=== PATIENT | male | born 2000 | race Two or more races ===

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

== ENCOUNTER 2018-09-16 21:28 | Emergency (ER) | payer SELFPAY ==
[~2018-09-16] VITALS: Ht 185.4 cm; Wt 108.9 kg
[~2018-09-16 21:28] MED LIST: DIPH25CA58 PO; FAMO-63 PO; PRED50TA PO
[2018-09-16 21:35] VITALS: BP 134/66
[2018-09-16 22:01] LABS: BILIRUBIN,URINE NEGATIVE (NEG); CLARITY,URINE CLOUDY; COLOR,URINE YELLOW; NITRITE,URINE NEGATIVE (NEG); PROTEIN,URINE NEGATIVE (NEG-TRACE)
[2018-09-16 22:10] LABS: SQUAMOUS EPITHELIAL CELL,UR FEW /LPF
[2018-09-16 22:11] LABS: BACTERIA,URINE 0 /HPF (0-FEW); RBC,URINE 0 /HPF (0-2); WBC,URINE TNTC /HPF (0-4)
[2018-09-16] MEDS ORDERED: AZITHROMYCIN 250 MG TABLET. PO ONE (23:00)
[2018-09-16] MEDS ORDERED: cefTRIAXone IM 250 MG VIAL IM ONE (23:00)
[2018-09-16] MEDS ORDERED: LIDOCAINE 1% PF 30 ML VIAL. INJ ONE (23:00)
[2018-09-16] MEDS ORDERED: CEPH-264 PO (23:09)
--- NOTE | 2018-09-16 23:11 | PHYS DOC ---
Past Medical History Past Medical History: No Pertinent History Past Surgical History: No Surgical History Smoking: Cigarettes, Less than 1pk/day Alcohol Use: None Drug Use: Other Adult General Chief Complaint Chief Complaint: FINGER INJURY HPI HPI Patient is a 18 year old male who presents with swelling of his left third digit on his hand. Also complains of penile discharge this been ongoing for 1 week describes the discharge is white in nature. Rates his pain is a 9 out of 10 and throbbing. Has not tried any interventions before arrival. Review of Systems Review of Systems Constitutional: Denies fever or chills [] Eyes: Denies change in visual acuity, redness, or eye pain [] HENT: Denies nasal congestion or sore throat [] Respiratory: Denies cough or shortness of breath [] Cardiovascular: No additional information not addressed in HPI [] GI: Denies abdominal pain, nausea, vomiting, bloody stools or diarrhea [] : Denies dysuria or hematuria but reports white penile discharge. Musculoskeletal: Denies back pain or joint pain [] Integument: Denies rash or skin lesions with exception of swelling to L 3rd digit around finger nail. Neurologic: Denies headache, focal weakness or sensory changes [] Endocrine: Denies polyuria or polydipsia [] Complete systems were reviewed and found to be within normal limits, except as documented in this note. Current Medications Current Medications Current Medications Medications (Trade) Dose Ordered Sig/Jennifer Start Time Stop Time Status Last Admin Dose Admin Azithromycin (Zithromax) 1,000 mg 1X ONCE 09/16/18 23:00 09/16/18 23:01 DC 09/16/18 23:00 1,000 MG Ceftriaxone Sodium (Rocephin Im) 250 mg 1X ONCE 09/16/18 23:00 09/16/18 23:01 DC 09/16/18 23:00 250 MG Lidocaine HCl (Xylocaine 1% Pf 30ml Vial) 30 ml 1X ONCE 09/16/18 23:00 09/16/18 23:01 DC Allergies Allergies Allergies Coded Allergies Type Severity Reaction Last Updated Verified No Known Drug Allergies 07/26/16 No Physical Exam Physical Exam Constitutional: Well developed, well nourished, no acute distress, non-toxic appearance. [] HENT: Normocephalic, atraumatic, bilateral external ears normal, oropharynx moist, no oral exudates, nose normal. [] Eyes: PERRLA, EOMI, conjunctiva normal, no discharge. [] Neck: Normal range of motion, no tenderness, supple, no stridor. [] Cardiovascular:Heart rate regular rhythm, no murmur [] Lungs & Thorax: Bilateral breath sounds clear to auscultation [] Abdomen: Bowel sounds normal, soft, no tenderness, no masses, no pulsatile masses. [] Skin: Warm, dry, no erythema, no rash. with exception of around L 3rd finger nail. Has swelling and erythema. Back: No tenderness, no CVA tenderness. [] Extremities: No tenderness, no cyanosis, no clubbing, ROM intact, no edema. [] Neurologic: Alert and oriented X 3, normal motor function, normal sensory function, no focal deficits noted. [] Psychologic: Affect normal, judgement normal, mood normal. [] Current Patient Data Vital Signs Vital Signs Date Time Temp Pulse Resp B/P (MAP) Pulse Ox O2 Delivery O2 Flow Rate FiO2 09/16/18 21:35 99.1 82 17 134/66 (88) 97 Room Air 99.1 Lab Values Laboratory Tests Test 09/16/18 21:35 Urine Collection Type Unknown Urine Color Yellow Urine Clarity Cloudy Urine pH 7.0 Urine Specific [place] 1.025 Urine Protein Negative mg/dL (NEG-TRACE) Urine Glucose (UA) Negative mg/dL (NEG) Urine Ketones (Stick) Negative mg/dL (NEG) Urine Blood Negative (NEG) Urine Nitrite Negative (NEG) Urine Bilirubin Negative (NEG) Urine Urobilinogen Dipstick 1.0 mg/dL (0.2 mg/dL) Urine Leukocyte Esterase Large (NEG) Urine RBC 0 /HPF (0-2) Urine WBC Tntc /HPF (0-4) Urine Squamous Epithelial Cells Few /LPF Urine Bacteria 0 /HPF (0-FEW) Urine Mucus Mod /LPF EKG EKG [] Radiology/Procedures Radiology/Procedures Performed a digit block on third left digit using 1% lidocaine. Cleared with iodine before block. Used 3 mL of lidocaine. After patient was numbed, took an 11 blade scalpel and drained abscess. No complications. Course & Med Decision Making Course & Med Decision Making Pertinent Labs and Imaging studies reviewed. (See chart for details) Will get urine and treat for STD. Will also perform digit block and drain paronychia. Patient is agreeable. Dragon Disclaimer Dragon Disclaimer This electronic medical record was generated, in whole or in part, using a voice recognition dictation system. Departure Departure Impression: Primary Impression: Paronychia of finger of left hand Additional Impression: Screen for STD (sexually transmitted disease) Disposition: HOME, SELF-CARE Condition: STABLE Referrals: NO PCP (PCP) Patient Instructions: Paronychia, Sexually Transmitted Disease Additional Instructions: Please follow up with primary care doctor as needed. Return to ER as needed. Please start protecting yourself while having sex with condoms. Consider following up with health department for more workup. Please keep finger clean and take all of antibiotics. Scripts Cephalexin (KEFLEX) 500 Mg Capsule 500 MG PO QID for 5 Days, #20 CAP Prov: LAUREN CANCHOLA APRN 09/16/18 Problem Qualifiers LAUREN CANCHOLA APRN Sep 16, 2018 23:11
[2018-09-16] MEDS ORDERED: CEPHALEXIN 250 MG CAPSULE. PO ONE (23:30)
== END 2018-09-16 23:52 | disposition home or self-care (01) ==
LOC: ER 21:28
DX: L03.012 Cellulitis of left finger (principal); Z11.3 Encounter for screening for infections with a predominantly sexual mode of transmission; F17.210 Nicotine dependence, cigarettes, uncomplicated
CPT/HCPCS: 10060; 81001; 87086; 87491; 87591; 96372; 99284; J0696; Q0144

== ENCOUNTER 2020-03-16 07:57 | Emergency (ER) | payer SELFPAY ==
[~2020-03-16] VITALS: Ht 185.4 cm; Wt 118.0 kg
[~2020-03-16 07:57] MED LIST changes: +CEPH-264 PO
[2020-03-16 08:34] LABS: BILIRUBIN,URINE NEGATIVE (NEG); CLARITY,URINE CLEAR; COLOR,URINE YELLOW; NITRITE,URINE NEGATIVE (NEG); PH,URINE 7.5 (<5.0-8.0); PROTEIN,URINE NEGATIVE (NEG-TRACE); UROBILINOGEN,URINE 0.2 mg/dL (0.2 mg/dL)
[2020-03-16 09:07] LABS: BACTERIA,URINE 0 /HPF (0-FEW); RBC,URINE 0 /HPF (0-2); WBC,URINE >40 /HPF (0-4)
--- NOTE | 2020-03-16 09:28 | ED.ADGEN ---
Past Medical History Past Medical History: No Pertinent History Past Surgical History: No Surgical History Smoking Status: Current Some Day Smoker Alcohol Use: Occasionally Drug Use: Other General Adult EDM: Chief Complaint: SEXUALLY TRANSMITTED DISEASE HPI: HPI: Patient is a 20-year-old male who presents to the emergency room complaining of penile discharge and dysuria. He states that dysuria started 4 days ago and has progressively gotten worse. He started having discharge 2 days ago. He has had this previously. He states his girlfriend is also getting tested and treated today. He denies any fever. He does not have any rash. Review of Systems: Review of Systems: Complete ROS is negative unless otherwise documented in HPI Current Medications: Current Medications Medications (Trade) Dose Ordered Sig/Jennifer Start Time Stop Time Status Last Admin Dose Admin Azithromycin (Zithromax) 1,000 mg 1X ONCE 03/16/20 09:45 03/16/20 09:46 03/16/20 09:31 1,000 MG Ceftriaxone Sodium (Rocephin Im) 250 mg 1X ONCE 03/16/20 09:45 03/16/20 09:46 03/16/20 09:32 250 MG Metronidazole (Flagyl) 2,000 mg 1X ONCE 03/16/20 09:45 03/16/20 09:46 03/16/20 09:31 2,000 MG Ondansetron HCl (Zofran Odt) 4 mg 1X ONCE 03/16/20 09:45 03/16/20 09:46 03/16/20 09:31 4 MG Allergies: Allergies: Allergies Coded Allergies Type Severity Reaction Last Updated Verified No Known Drug Allergies 07/26/16 No Physical Exam: PE: General: Awake, alert, NAD. Well Nourished, well hydrated. Cooperative HEENT: Atraumatic, EOMI, PERRL, airway patent, moist oral mucosa Neck: Supple, trachea midline Respiratory: CTA bilaterally, normal effort, no wheezing/crackles CV: RRR, no murmur, cap refill <2 GI: Soft, nondistended, nontender, no masses MSK: No obvious deformities Skin: Warm, dry, intact Neuro: A&O x3, speech NL, sensory and motor grossly intact, no focal deficits Psych: Normal affect, normal mood, not suicidal or homicidal Current Patient Data: Labs: Laboratory Tests Test 03/16/20 08:10 Urine Collection Type Unknown Urine Color Yellow Urine Clarity Clear Urine pH 7.5 (<5.0-8.0) Urine Specific [place] 1.020 (1.000-1.030) Urine Protein Negative mg/dL (NEG-TRACE) Urine Glucose (UA) Negative mg/dL (NEG) Urine Ketones (Stick) Negative mg/dL (NEG) Urine Blood Negative (NEG) Urine Nitrite Negative (NEG) Urine Bilirubin Negative (NEG) Urine Urobilinogen Dipstick 0.2 mg/dL (0.2 mg/dL) Urine Leukocyte Esterase Large (NEG) Urine RBC 0 /HPF (0-2) Urine WBC >40 /HPF (0-4) Urine Squamous Epithelial Cells Occ /LPF Urine Bacteria 0 /HPF (0-FEW) Urine Mucus Mod /LPF Vital Signs: Vital Signs Date Time Temp Pulse Resp B/P (MAP) Pulse Ox O2 Delivery O2 Flow Rate FiO2 03/16/20 08:10 97.5 89 16 175/99 (124) 99 Room Air 97.5 EKG: EKG: [] Heart Score: Risk Factors: Risk Factors: DM, Current or recent (<one month) smoker, HTN, HLP, family histo ry of CAD, obesity. Risk Scores: Score 0 - 3: 2.5% MACE over next 6 weeks - Discharge Home Score 4 - 6: 20.3% MACE over next 6 weeks - Admit for Clinical Observation Score 7 - 10: 72.7% MACE over next 6 weeks - Early Invasive Strategies Radiology/Procedures: Radiology/Procedures: [] Course & Med Decision Making: Course & Med Decision Making Pertinent Labs and Imaging studies reviewed. (See chart for details) Patient is a 20 year-old male who presents to the Emergency Room complaining of penile discharge and dysuria. Patient's presentation is concerning for urethritis due to possible sexually transmitted disease. Patient does not have any lesions or swelling at this time. UA and gonorrhea chlamydia urine PCR will be ordered. Patient will be treated empirically with Flagyl, Rocephin, Azithromycin, and zofran. I have discussed with the patient that they will need to follow up with the health department for full testing, that their partners should be tested and treated, and that they should not have sexual intercourse for at least 7 days after treatment. Patient's test results and vitals while in the ED were fully reviewed and discussed with the patient. Patient is stable and at this time does not need admission to the hospital. We have discussed strict return precautions and the importance of following up with their Primary Care Physician. Patient stated understanding and was given an opportunity to ask any questions. Patient is in agreement with plan. Dragon Disclaimer: Dragon Disclaimer: This electronic medical record was generated, in whole or in part, using a voice recognition dictation system. Departure Departure Impression: Primary Impression: Screen for STD (sexually transmitted disease) Disposition: 01 DC HOME SELF CARE/HOMELESS Condition: STABLE Referrals: NO PCP (PCP) Patient Instructions: Sexually Transmitted Disease KAI ESTRADA MD Mar 16, 2020 09:28
[2020-03-16] MEDS ORDERED: cefTRIAXone IM 250 MG VIAL IM ONE (09:45)
[2020-03-16] MEDS ORDERED: metroNIDAZOLE 500 MG TABLET PO ONE (09:45)
[2020-03-16] MEDS ORDERED: ONDANSETRON ODT 4 MG TAB.RAPDIS. PO ONE (09:45)
[2020-03-16] MEDS ORDERED: AZITHROMYCIN 250 MG TABLET. PO ONE (09:45)
[2020-03-16 10:05] VITALS: BP 161/77
== END 2020-03-16 10:12 | disposition home or self-care (01) ==
LOC: ER 07:57
DX: A54.9 Gonococcal infection, unspecified (principal); N34.2 Other urethritis; R30.0 Dysuria; F17.200 Nicotine dependence, unspecified, uncomplicated
CPT/HCPCS: 81001; 87491; 87591; 96372; 99284; J0696

== ENCOUNTER 2021-04-29 21:01 | Emergency (ER) | payer SELFPAY ==
[~2021-04-29] VITALS: Ht 188 cm; Wt 130.7 kg
--- NOTE | 2021-04-29 22:54 | RAD ---
EXAM: XR CHEST 2V 04/29/2021 9:35 PM CLINICAL INDICATION: Sharp right-sided chest pain COMPARISON: None TECHNIQUE: PA and lateral views of the chest FINDINGS: The heart and mediastinum are normal. Lungs are well-expanded and clear. No consolidatio n, pleural effusion, or pneumothorax. Pulmonary vascularity is normal. The thoracic skeleton is int act. IMPRESSION: Normal chest radiograph. Electronically signed by: Vaishali Lynn MD (04/29/2021 10:51 PM) [id number]
--- NOTE | 2021-04-29 23:28 | PHYS DOC ---
Past Medical History Past Medical History: No Pertinent History Past Surgical History: No Surgical History Smoking Status: Never Smoker Alcohol Use: Occasionally Drug Use: Other General Adult EDM: Chief Complaint: CHEST PAIN-NON CARDIAC NATURE HPI: HPI: Patient is a 21 year old male who presents with right-sided chest discomfort. Started approximate 2 hours prior to arrival to the ED. Described as sharp and intermittent. Has slowly been improving. Denies shortness of breath or pleuritic nature to the pain. It is not positional or triggered by movement. It is not exertional. Denies cough, fever, chills, shortness of breath. No chest wall trauma. No lower extremity edema, hemoptysis, hormone containing medications, or smoking. No recent surgeries or immobilizations. No personal or family history of DVT/PE . No medications. Occasional alcohol use. Denies drug use. Has not had similar pain in the past. Not vaccinated for COVID. No known COVID exposures. Review of Systems: Review of Systems: Constitutional: Denies fever or chills. [] Eyes: Denies change in visual acuity. [] HENT: Denies nasal congestion or sore throat. [] Respiratory: Denies cough or shortness of breath. [] Cardiovascular: Right-sided chest wall pain GI: Denies abdominal pain, nausea, vomiting, bloody stools or diarrhea. [] : Denies dysuria. [] Musculoskeletal: Denies back pain or joint pain. [] Integument: Denies rash. [] Neurologic: Denies headache, focal weakness or sensory changes. [] Endocrine: Denies polyuria or polydipsia. [] Lymphatic: Denies swollen glands. [] Psychiatric: Denies depression or anxiety. [] Heart Score: C/O Chest Pain: Yes HEART Score for Chest Pain: HEART Score for Chest Pain Response (Comments) Value History Slighlty/Non-Suspicious 0 ECG Nonspecific Repolarizatio 1 Age < 45 0 Risk Factors No Risk Factors 0 Total 1 Risk Factors: Risk Factors: None Risk Scores: Score 0 - 3: 2.5% MACE over next 6 weeks - Discharge Home Allergies: Allergies: Allergies Coded Allergies Type Severity Reaction Last Updated Verified No Known Drug Allergies 07/26/16 No Physical Exam: PE: Constitutional: Well developed, well nourished, no acute distress, non-toxic appearance. [] HENT: Normocephalic, atraumatic Neck: Normal range of motion, no tenderness, supple, no stridor. [] Cardiovascular:Heart rate regular rhythm, no murmur [] Lungs & Thorax: Bilateral breath sounds clear to auscultation [] Abdomen: Soft, nontender. Skin: Warm, dry, no erythema, no rash. [] Extremities: No tenderness, no cyanosis, no clubbing, ROM intact, no edema. [] Neurologic: Alert and oriented X 3, normal motor function, normal sensory function, no focal deficits noted. [] Psychologic: Affect normal, judgement normal, mood normal. [] Current Patient Data: Labs: Laboratory Tests Test 04/29/21 21:43 04/29/21 22:23 SARS-CoV-2 Antigen (Rapid) Negative (NEGATIVE) D-Dimer (Jennie) 0.38 ug/mlFEU (0.00-0.50) Vital Signs: Vital Signs Date Time Temp Pulse Resp B/P (MAP) Pulse Ox O2 Delivery O2 Flow Rate FiO2 04/29/21 22:25 77 10 182/93 (122) 96 Room Air 04/29/21 21:18 98.3 98.3 EKG: EKG: Sinus rhythm. Rate 67. Right axis deviation. Right ventricular hypertrophy. [] Radiology/Procedures: Radiology/Procedures: [] Impression: [facility] [address] [place], [place] [id number] IMAGING REPORT Signed PATIENT: GATITO DERAS V ACCOUNT: [id number] : 2000 LOCATION: ER AGE: 21 SEX: M EXAM STATUS: REG ER ORD. PHYSICIAN: LANA TORRES MD REASON: R sided sharp chest pain PROCEDURE: CHEST PA & LATERAL EXAM: XR CHEST 2V 04/29/2021 9:35 PM CLINICAL INDICATION: Sharp right-sided chest pain COMPARISON: None TECHNIQUE: PA and lateral views of the chest FINDINGS: The heart and mediastinum are normal. Lungs are well-expanded and clear. No consolidation, pleural effusion, or pneumothorax. Pulmonary vascularity is normal. The thoracic skeleton is intact. IMPRESSION: Normal chest radiograph. Electronically signed by: Vaishali Lynn MD (04/29/2021 10:51 PM) [id number] DICTATED and SIGNED BY: VAISHALI LYNN MD DATE: 04/29/21 [id number] Course & Med Decision Making: Course & Med Decision Making Pertinent Labs and Imaging studies reviewed. (See chart for details) Patient a 21-year-old male presents with right-sided sharp chest discomfort. On arrival is afebrile, hemodynamically stable. Normal heart rate, BP hypertensive, satting 96+ percent on room air. He is in no distress, and overall well-appearing. Chest x-ray normal. Rapid COVID negative. EKG with R axis deviation and right ventricular hypertrophy. D-dimer is negative. No risk factors for ACS. No pericarditis changes on ekg. Not myocarditis. Pain has essentially subsided, and vitals have remained stable. Patient will be discharged. Provided with cardiology follow-up given his abnormal EKG and lack of PCP. Dragon Disclaimer: Dragon Disclaimer: This electronic medical record was generated, in whole or in part, using a voice recognition dictation system. Departure Departure Impression: Primary Impression: Chest pain in adult Additional Impression: Abnormal EKG Disposition: HOME / SELF CARE / HOMELESS Condition: STABLE Referrals: NO PCP (PCP) BONNIE MOHR MD Schedule an appointment to discuss your abnormal EKG and determine if you need further testing. Additional Instructions: Since you do not have a PCP, please call the number for the [facility] at [phone]. I have also attached information for push connector assembler given your abnormal EKG. I would like you to call them to schedule an appointment. Call the office of Dr. oMhr. If you develop new symptoms such as fever/chills, shortness of breath, worsening pain, feeling like you may pass out, or other new/concerning symptoms please return to the emergency department for reevaluation. LANA TORRES MD Apr 29, 2021 23:28
[2021-04-29 23:50] VITALS: BP 174/81
--- NOTE | 2021-04-30 06:27 | EKG ---
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
== END 2021-04-29 23:45 | disposition home or self-care (01) ==
LOC: ER 21:01
DX: R07.89 Other chest pain (principal); Z20.822 Contact with and (suspected) exposure to COVID-19
CPT/HCPCS: 36415; 71046; 85379; 87426; 93005; 99285; U0003; U0005